=== PATIENT | female | born 1945 | race Caucasian/White ===

== ENCOUNTER 2018-06-16 10:10 | Emergency (ER) | payer MEDICARE, OTHER ==
[~2018-06-16] VITALS: Ht 172.7 cm; Wt 96.2 kg
[~2018-06-16 10:10] MED LIST: ASPIRIN81 MG PO; FLONASE ALLERG9.9 ML NAS; GLUCOSAMINE1000 MG PO; LEVOTHYROXINE88 MCG PO; MULTIVITAMINS1 EAC8 PO; OSTEO BI-FLEX1 EAC2 PO; VITAMIN B122500 MCG PO; VITAMIN C500 M1 PO
[2018-06-16] MEDS ORDERED: ESCITALOPRAM OX10 MG PO (10:22)
== END 2018-06-16 11:10 | disposition home or self-care (01) ==
LOC: ED 10:10
DX: S00.83XA Contusion of other part of head, initial encounter (principal); F32.9 Major depressive disorder, single episode, unspecified; Z88.2 Allergy status to sulfonamides; Z79.899 Other long term (current) drug therapy; W19.XXXA Unspecified fall, initial encounter
CPT/HCPCS: 99283